=== PATIENT | male | born 1965 | race Caucasian/White ===

== ENCOUNTER → 2024-03-17 | Outpatient (CLI) | payer BC ==
--- NOTE | 2024-03-17 10:33 | MR ---
EXAMINATION TYPE: MR lumbar spine wo con DATE OF EXAM: 03/17/2024 COMPARISON: None HISTORY: 58-year-old male M47.816, Low back pain that radiates down left leg TECHNIQUE: Multiplanar, multisequence images of the lumbar spine were acquired without IV contrast. FINDINGS: [id number] degenerative disc disease L4-L5 and L5-S1 with desiccated, mildly narrowed, and mild ly bulging discs. Additional mild degenerative disc disease L3-L4 with developing disc desiccation. There is advanced hypertrophic facet arthropathy mid to lower lumbar spine, especially L4-L5 and towa rds the left where a small facet joint effusion is also present along with some reactive marrow edema and a 1 cm synovial cyst projecting posteriorly from the facet joint. Changes result in a degenerative grade 1 anterolisthesis at L4-L5 circumferentially attenuating the t hecal sac but without significant spinal canal stenosis. Conus medullaris is normal. Vertebral body heights are preserved. No suspicious bone marrow placement. At L4-L5, there is disc bulge which extends left intraforaminal and left lateral extraforaminal abutt ing the segments of the nerve root. Mild to moderate bilateral neuroforaminal stenosis at this level. At L5-S1, facet arthropathy and mild bilateral neuroforaminal stenosis. No prevertebral or paravertebral soft body seen. IMPRESSION: 1. [id number] degenerative disc disease L3-S1 levels with mildly desiccated and bulging discs. 2. Hypertrophic facet arthropathy mid to lower lumbar spine. Changes are particularly severe towards the left at L4-L5 where there is reactive marrow edema, a small facet joint effusion, and a 1 cm syno vial cyst extending posteriorly. 3. Degenerative grade 1 anterolisthesis L4-L5. Overall mild attenuation of the thecal sac here at thi s level but without significant spinal canal stenosis. 4. While there is mild to moderate bilateral neuroforaminal stenosis at L4-L5, a left lateral disc bu lge abuts the intraforaminal and extraforaminal left L4 nerve root here at this level.
== END | disposition home or self-care (01) ==
LOC: RADMRIMAIN 07:04
PROVIDERS: ATTEND Internal Medicine
DX: M47.816 Spondylosis without myelopathy or radiculopathy, lumbar region (principal); M51.37 Other intervertebral disc degeneration, lumbosacral region; M99.73 Connective tissue and disc stenosis of intervertebral foramina of lumbar region; M25.48 Effusion, other site; M43.16 Spondylolisthesis, lumbar region
CPT/HCPCS: 72148